=== PATIENT | male | born 1960 ===

== ENCOUNTER 2019-08-07 12:21 | Outpatient (CLI) | payer OTHER | END 2019-08-07 16:17 | disposition home or self-care (01) | LOC: MRI 12:21 | DX: M25.562 Pain in left knee (principal) | CPT/HCPCS: 73721 ==

== ENCOUNTER 2024-10-06 05:21 | Day surgery (SDC) | payer OTHER ==
[~2024-10-06 05:21] MED LIST: AMBIEN10 MG PO; COZAAR50 MG PO; DILTIAZEM HCL120 MG; DYMISTA NASAL S23 GM; FARXIGA10 MG PO; HORIZANT300 MG PO; PLAQUENIL PO
[2024-10-06 10:17] LABS: CSF POLYMORPHONUCLEAR 0 %; CSF RBC 0.000 10E6/uL (0-5.0); CSF WBC 0.002 10E3/uL (0-5)
[2024-10-06 10:22] LABS: CSF APPEARANCE CRYSTAL CLEAR
== END 2024-10-06 12:35 | disposition home or self-care (01) ==
LOC: CIR.AMB 05:21
PROVIDERS: ATTEND Anesthesiology Pain Medicine
DX: A52.3 Neurosyphilis, unspecified (principal); H20.9 Unspecified iridocyclitis